=== PATIENT | male | born 1965 | race Caucasian/White ===

== ENCOUNTER 2019-04-13 10:38 | Inpatient (IN) | payer OTHER ==
[2019-04-13 11:16] LABS: ADD MAN DIFF? NO
[2019-04-13 11:17] LABS: WHITE BLOOD COUNT 6.3 10^3/ul (4.8-10.8)
[2019-04-13 11:17] LABS: BASOPHILS % 0.6 % (0.0-2.0); EOSINOPHILS # 0.1 10^3/ul (0.0-0.5); EOSINOPHILS % 1.9 % (0.0-7.0); HEMATOCRIT 44.7 % (42.0-52.0); HEMOGLOBIN 15.2 g/dl (14.0-18.0); LYMPHOCYTES # 1.9 10^3/ul (0.8-2.9); LYMPHOCYTES % 30.5 % (15.0-51.0); MEAN CORPUSCULAR HEMOGLOBIN 31.1 pg (29.0-33.0); MEAN CORPUSCULAR VOLUME 91.6 fl (82.0-101.0); MONOCYTE # 0.5 10^3/ul (0.3-0.9); MONOCYTES % 8.4 % (0.0-11.0); NEUTROPHIL # 3.7 10^3/ul (1.6-7.5); NEUTROPHILS % 58.4 % (39.0-77.0); PLATELET COUNT 216 10^3/UL (140-415); RED BLOOD COUNT 4.88 10^6/ul (4.70-6.10); RED CELL DISTRIBUTION WIDTH 12.6 % (11.5-14.5)
[2019-04-13 11:38] LABS: PROTIME 12.3 Sec (11.9-14.9)
[2019-04-13 11:42] LABS: ALANINE AMINOTRANSFERASE 54 IU/L (13-69); ALBUMIN 4.5 g/dl (3.3-4.9); ALKALINE PHOSPHATASE 88 IU/L (42-121); ANION GAP 10 (5-13); ASPARTATE AMINO TRANSFERASE 39 IU/L (15-46); BILIRUBIN,INDIRECT 0.8 mg/dl (0-1.1); BILIRUBIN,TOTAL 0.8 mg/dl (0.2-1.3); BLOOD UREA NITROGEN 22 mg/dl (7-20); CALCIUM 9.5 mg/dl (8.4-10.2); CARBON DIOXIDE 26 mmol/L (21-31); CHLORIDE 102 mmol/L (97-110); CREATININE 0.91 mg/dl (0.61-1.24); Estimated GFR > 60 mL/min (>60); GLUCOSE 114 mg/dl (70-220); POTASSIUM 3.9 mmol/L (3.5-5.1); SODIUM 138 mmol/L (135-144); TOTAL PROTEIN 7.7 g/dl (6.1-8.1)
[2019-04-13 12:13] LABS: B-TYPE NATRIURETIC PEPTIDE 107 PG/ML (0-125)
[2019-04-13 12:14] LABS: TROPONIN-I 0.712 ng/ml (0.000-0.120)
[2019-04-13] MEDS: ATORVASTATIN 80 MG TAB PO (12:57)
[2019-04-13] MEDS: ASPIRIN 325 MG TAB PO (12:57)
[2019-04-13] MEDS ORDERED: ACETAMINOPHEN 325 MG TAB PO (14:00)
[2019-04-13] MEDS ORDERED: ONDANSETRON 4 MG INJ IV ×2 (14:00→15:30)
[2019-04-13] MEDS: SOD CHLORIDE 0.9% 1,000 ML IV (17:03)
[2019-04-13] MEDS: BIVALIRUDIN 250MG /NS 50 ML 50 ML IVPB ×3 (17:04→19:27)
[2019-04-13] MEDS: DIPHENHYDRAMINE 50 MG INJ IV (17:49)
[2019-04-13] MEDS ORDERED: MIDAZOLAM 1 MG/ML 2 ML INJ (18:33)
[2019-04-13] MEDS ORDERED: LIDOCAINE 1% (MDV) 20 ML INJ (18:33)
[2019-04-13] MEDS ORDERED: HEPARIN 1000 UNITS/ML 10 ML INJ (18:33)
[2019-04-13] MEDS ORDERED: FENTAnyl 50 MCG/ML VIAL (18:33)
[2019-04-13] MEDS ORDERED: IODIXANOL LOCM 100 ML BTL (18:33)
[2019-04-13] MEDS ORDERED: SOD CHLORIDE 0.9% 500 ML (18:34)
[2019-04-13] MEDS ORDERED: NITROGLYCERIN (IC) 100 MCG/ML INJ (18:34)
[2019-04-13] MEDS ORDERED: DIPHENHYDRAMINE 50 MG INJ (18:34)
[2019-04-13] MEDS ORDERED: IOHEXOL 350MG/ML 50 ML BTL (18:34)
[2019-04-13] MEDS ORDERED: TICAGRELOR 90 MG TABLET (18:34)
[2019-04-13] MEDS ORDERED: VERAPAMIL 5 MG INJ ×2 (18:34)
[2019-04-13] MEDS ORDERED: METHYLPREDNISOLONE 125 MG INJ (18:34)
[2019-04-13] MEDS ORDERED: BIVALIRUDIN 250MG /NS 50 ML 50 ML IVPB ×2 (18:34)
[2019-04-13 18:36] LABS: CREATINE KINASE 328 IU/L (23-200)
[2019-04-13 18:54] LABS: CK-MB 3.44 ng/ml (0.0-2.4)
[2019-04-13] MEDS: predniSONE 20 MG TAB PO (21:19)
[2019-04-13] MEDS: DOCUSATE SODIUM 100 MG CAP PO (22:33)
[2019-04-13] MEDS: ATORVASTATIN 20 MG TAB PO (22:33)
[2019-04-13] MEDS: TICAGRELOR 90 MG TABLET PO (23:03)
[2019-04-14 00:54] LABS: CREATINE KINASE 239 IU/L (23-200)
[2019-04-14] MEDS: predniSONE 20 MG TAB PO ×2 (00:58→06:48)
[2019-04-14 01:07] LABS: CK INDEX 1.1
[2019-04-14 01:11] LABS: CK-MB 2.59 ng/ml (0.0-2.4); TROPONIN-I 0.803 ng/ml (0.000-0.120)
[2019-04-14 05:47] LABS: ADD MAN DIFF? NO
[2019-04-14 05:58] LABS: WHITE BLOOD COUNT 12.9 10^3/ul (4.8-10.8)
[2019-04-14 05:58] LABS: BASOPHILS % 0.1 % (0.0-2.0); HEMATOCRIT 44.3 % (42.0-52.0); HEMOGLOBIN 15.2 g/dl (14.0-18.0); LYMPHOCYTES # 0.9 10^3/ul (0.8-2.9); LYMPHOCYTES % 6.8 % (15.0-51.0); MEAN CORPUSCULAR HEMOGLOBIN 31.1 pg (29.0-33.0); MEAN CORPUSCULAR HGB CONC 34.3 g/dl (32.0-37.0); MEAN CORPUSCULAR VOLUME 90.6 fl (82.0-101.0); MEAN PLATELET VOLUME 9.3 fl (7.4-10.4); MONOCYTE # 0.1 10^3/ul (0.3-0.9); MONOCYTES % 0.9 % (0.0-11.0); NEUTROPHIL # 11.8 10^3/ul (1.6-7.5); NEUTROPHILS % 91.7 % (39.0-77.0); PLATELET COUNT 229 10^3/UL (140-415); RED BLOOD COUNT 4.89 10^6/ul (4.70-6.10); RED CELL DISTRIBUTION WIDTH 12.5 % (11.5-14.5)
[2019-04-14 06:20] LABS: ANION GAP 10 (5-13); BLOOD UREA NITROGEN 16 mg/dl (7-20); CALCIUM 9.2 mg/dl (8.4-10.2); CARBON DIOXIDE 23 mmol/L (21-31); CHLORIDE 104 mmol/L (97-110); CREATININE 0.77 mg/dl (0.61-1.24); Estimated GFR > 60 mL/min (>60); GLUCOSE 146 mg/dl (70-220); PHOSPHORUS 3.1 mg/dl (2.5-4.9); POTASSIUM 4.1 mmol/L (3.5-5.1); SODIUM 137 mmol/L (135-144)
[2019-04-14 06:48] LABS: THYROID STIMULATING HORMONE 0.361 MIU/L (0.465-4.680)
[2019-04-14] MEDS: LOSARTAN 50 MG TAB PO (08:41)
[2019-04-14] MEDS: DOCUSATE SODIUM 100 MG CAP PO ×2 (08:41→21:06)
[2019-04-14] MEDS: ASPIRIN (EC) 81 MG TAB PO (08:43)
[2019-04-14] MEDS: TICAGRELOR 90 MG TABLET PO ×2 (08:44→21:11)
[2019-04-14 08:49] LABS: AMPHETAMINE/METHAMPHETAMINE Negative (NEGATIVE); BARBITURATES Negative (NEGATIVE); BENZODIAZEPINES Positive (NEGATIVE); CANNABINOIDS Negative (NEGATIVE); COCAINE Negative (NEGATIVE); OPIATES Negative (NEGATIVE)
[2019-04-14] MEDS ORDERED: ASPIRIN (EC) 81 MG TAB PO (09:00)
[2019-04-14] MEDS: DIPHENHYDRAMINE 25 MG CAP PO (10:41)
[2019-04-14] MEDS: METOPROLOL (XL) 25 MG TAB PO (15:02)
[2019-04-14] MEDS: FAMOTIDINE 20 MG INJ IV ×2 (15:02→21:06)
[2019-04-14] MEDS: ATORVASTATIN 40 MG TAB PO (21:06)
[2019-04-15 06:00] LABS: ADD MAN DIFF? NO
[2019-04-15 06:01] LABS: BASOPHIL # 0.1 10^3/ul (0.0-0.1); BASOPHILS % 0.5 % (0.0-2.0); EOSINOPHILS # 0.1 10^3/ul (0.0-0.5); EOSINOPHILS % 0.5 % (0.0-7.0); HEMATOCRIT 41.6 % (42.0-52.0); LYMPHOCYTES # 2.4 10^3/ul (0.8-2.9); LYMPHOCYTES % 22.1 % (15.0-51.0); MEAN CORPUSCULAR HGB CONC 33.7 g/dl (32.0-37.0); MEAN CORPUSCULAR VOLUME 92.2 fl (82.0-101.0); MEAN PLATELET VOLUME 9.2 fl (7.4-10.4); MONOCYTE # 0.8 10^3/ul (0.3-0.9); MONOCYTES % 6.8 % (0.0-11.0); NEUTROPHIL # 7.6 10^3/ul (1.6-7.5); NEUTROPHILS % 69.7 % (39.0-77.0); PLATELET COUNT 215 10^3/UL (140-415); RED BLOOD COUNT 4.51 10^6/ul (4.70-6.10)
[2019-04-15 06:47] LABS: ANION GAP 9 (5-13); BLOOD UREA NITROGEN 19 mg/dl (7-20); CALCIUM 8.9 mg/dl (8.4-10.2); CARBON DIOXIDE 24 mmol/L (21-31); CHLORIDE 106 mmol/L (97-110); Estimated GFR > 60 mL/min (>60); GLUCOSE 107 mg/dl (70-220); POTASSIUM 4.1 mmol/L (3.5-5.1); SODIUM 139 mmol/L (135-144)
[2019-04-15] MEDS: DOCUSATE SODIUM 100 MG CAP PO (08:22)
[2019-04-15] MEDS: ASPIRIN (EC) 81 MG TAB PO (08:22)
[2019-04-15] MEDS: METOPROLOL (XL) 25 MG TAB PO (08:25)
[2019-04-15] MEDS: LOSARTAN 50 MG TAB PO (08:26)
[2019-04-15] MEDS: FAMOTIDINE 20 MG INJ IV (08:26)
[2019-04-15] MEDS: TICAGRELOR 90 MG TABLET PO (08:41)
[2019-04-15 12:13] LABS: HEMOGLOBIN A1C 5.5 % (0-5.9)
== END 2019-04-15 14:30 | disposition home or self-care (01) | DRG 247 ==
LOC: CCL 14:42 → ICU 14:43 → E/R 10:38 → 6WM 04-14 15:23 → CCL 14:25 → SDS 14:25 → ICU 16:35
PROC: 027034Z Dilation of Coronary Artery, One Artery with Drug-eluting Intraluminal Device, Percutaneous Approach (ICD-10-PCS; principal; 2019-04-13 14:31)
PROC: 4A023N7 Measurement of Cardiac Sampling and Pressure, Left Heart, Percutaneous Approach (ICD-10-PCS; 2019-04-13 14:31)
PROC: B211YZZ Fluoroscopy of Multiple Coronary Arteries using Other Contrast (ICD-10-PCS; 2019-04-13 14:31)
PROC: B215YZZ Fluoroscopy of Left Heart using Other Contrast (ICD-10-PCS; 2019-04-13 14:31)
DX: I21.4 Non-ST elevation (NSTEMI) myocardial infarction (principal); M62.82 Rhabdomyolysis; I25.10 Atherosclerotic heart disease of native coronary artery without angina pectoris; I10 Essential (primary) hypertension; E78.5 Hyperlipidemia, unspecified; D72.829 Elevated white blood cell count, unspecified; L50.0 Allergic urticaria; Z87.891 Personal history of nicotine dependence; T50.8X5A Adverse effect of diagnostic agents, initial encounter; Y92.238 Other place in hospital as the place of occurrence of the external cause
CPT/HCPCS: 71045; 80048; 80053; 80307; 82550; 82553; 83036; 83735; 83880; 84100; 84443; 84484; 85025; 85610; 87081; 92928; 93005; 93306; 93458; 99285-25